=== PATIENT | female | born 1995 | race Caucasian/White ===

== ENCOUNTER → 2017-12-08 | Outpatient (CLI) | payer BC | END | disposition home or self-care (01) | LOC: C.LABSPEC 13:31 | PROVIDERS: ATTEND Physician Assistant | DX: Z01.419 Encounter for gynecological examination (general) (routine) without abnormal findings (principal) ==

== ENCOUNTER → 2017-12-08 | Outpatient (CLI) | payer BC | END | disposition home or self-care (01) | LOC: C.PAPS 13:34 | PROVIDERS: ATTEND Physician Assistant | DX: Z01.419 Encounter for gynecological examination (general) (routine) without abnormal findings (principal) ==

== ENCOUNTER → 2017-12-15 | Outpatient (CLI) | payer BC ==
--- NOTE | 2017-12-15 14:35 | MAMMOGRAPHY REPORT ---
ULTRASOUND OF RIGHT BREAST: 12/15/2017 CLINICAL HISTORY: The patient reports a palpable right breast lump which she has probably had for a y ear, however, it feels more discrete and possibly larger over the last 2 months. She denies any asso ciated pain or other complaints. COMPARISON: No prior exams were available for comparison. TECHNIQUE: Real-time high-resolution targeted ultrasound of the right breast was performed. FINDINGS: Real-time, high resolution targeted ultrasound was performed of the area of the palpable l ump pointed out by the patient, in the right breast at approximately 10:00, 7 cm from the nipple. At the site of the palpable lump there is an oval parallel circumscribed hypoechoic solid mass which me asures 12 x 6 x 10 mm. The mass likely represents a fibroadenoma. Given that it has increased in si ze clinically, ultrasound guided core needle biopsy is recommended for further evaluation. IMPRESSION: ACR BI-RADS CATEGORY 4: SUSPICIOUS - FOLLOW-UP RECOMMENDED Hypoechoic 12 mm mass in the right 10:00 breast at the site of the palpable lump pointed out by the p atient. The mass is indeterminate and ultrasound-guided core needle biopsy is recommended for furthe r evaluation. 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 A phone call was made to the physician's office to confirm faxed results were received. The patient was verbally notified of the results. She tentatively scheduled the biopsy before leaving the depart ment. Hoda Sharma M.D. ah/:12/15/2017 09:13:58 Operations Specialists: Heather MURPHY)(Azeem), [facility] letter sent: Abnormal 4/5 BI-RADS Code: ACR BI-RADS Category 4: Suspicious
== END | disposition home or self-care (01) ==
LOC: C.MAMM 08:42
PROVIDERS: ATTEND Physician Assistant
DX: N63.10 Unspecified lump in the right breast, unspecified quadrant (principal)

== ENCOUNTER → 2017-12-21 | Outpatient (CLI) | payer BC ==
--- NOTE | 2017-12-21 10:26 | Discharge Instructions ---
Discharge Instructions Procedure Procedure Date: Dec 21, 2017. Reason for visit: Right Mass. Discharge Discharge Date: Dec 21, 2017. Discharge Diagnosis: post right breast ultrasound guided core biopsy Instructions Activity Recommendations: Additional Limitations (see below) Return to School/Work: no limitations Recommended Home Diet: No Limitations Provider Instructions: ACTIVITY RECOMMENDATIONS: * No lifting, pushing, pulling or exercising the affected side for three days. RETURN TO SCHOOL/WORK: * You may return to work/school after the procedure, but do not perform any strenuous activities for 24 to 48 hours. MEDICATIONS: * Tylenol (two 325 mg) every four to six hours if needed for mild pain (if not allergic to Tylenol). DIET: * Resume previous diet. SPECIAL CARE INSTRUCTIONS: * Keep biopsy site dry for 24 hours. May shower after 24 hours, but do not soak (bathe) incision. * May remove Tegaderm (plastic patch) tomorrow AFTER showering. * Leave the steri-strips on for one week. Allow the steri-strips to fall off by themselves. If not off after one week, you may remove them. You may place a Bandaid crosswise over the strips, if desired. * Apply ice 10 minutes on and 10 minutes off as needed. * Wear a bra at bedtime to sleep more comfortably for 2-3 days. * Your referring physician should have the results after approximately 5 to 7 business days. * Call for unusual bleeding, fever, drainage, etc or if you have any questions call [phone] during normal business hours or after hours call Dr Ugalde, . FOLLOW UP VISIT: Follow-up with Referring Physician as scheduled. Sharon Jane Recommendations: Call your doctor if: * Temperature above 101 degrees * Pain not relieved by pain medicine ordered * There is increased drainage or redness from any incision * You have any unanswered questions or concerns. Your Doctors Instructions noted above were prepared by provider Wanda Ugalde. Patient Signature Section: Patient Instructions Signature Page Wanda Oliveira Patient (or Guardian) Signature/Date: I have read and understand the instructions given to me by my caregivers. Caregiver/RN/Doctor Signature/Date: The above-named patient and/or guardian has received patient instructions on this date. + Original Patient Signature Page (only) stays with chart. Please make copy for patient.
--- NOTE | 2017-12-21 14:02 | MAMMOGRAPHY REPORT ---
ULTRASOUND GUIDED BIOPSY RIGHT BREAST: 12/21/2017 CLINICAL HISTORY: 22-year-old woman presents for biopsy of a solid oval circumscribed parallel 12 mm mass in the 10:00 right breast. COMPARISON: Comparison is made to exam dated: 12/15/2017 ultrasound - [facility]. PATIENT CONSENT: The procedure, risks and benefits were discussed with the patient and informed conse nt was obtained both verbally and in writing. Specific risks to this procedure include: bleeding, in fection, puncture of adjacent structure, nontarget biopsy, sampling error, pain, metal allergy and me dication reaction. PROCEDURE DESCRIPTION: A time out was performed and the right breast was agreed as the site of biopsy . The skin was prepped and draped in the usual sterile fashion. The solid 12 mm mass in the 10:00 rig ht breast was chosen as the target for biopsy. Subcutaneous and intraparenchymal 1% buffered lidocain e, with and without epinephrine, was administered as local anesthesia. A skin incision was made. Thr ough the incision, 4 samples were taken with a 14 gauge Achieve biopsy device. A ribbon shaped metall ic marker was placed at the biopsy site. Hemostasis was achieved after manual compression. The patien t tolerated the procedure well and there was no immediate complication. The samples were sent to the pathology department in an appropriately labeled container. Postprocedure mammography was deferred given the patient's age. IMPRESSION: ULTRASOUND GUIDED BIOPSY Status post ultrasound guided core biopsy of a solid 12 mm oval mass in the 10:00 right breast, with ribbon-shaped biopsy marker clip placed at the site. The patient will receive notification of the biopsy results from her referring physician. Wanda Ugalde M.D. ay/:12/21/2017 10:33:05 Attending Technologist: Dr. Wanda Ugalde, [facility] Rn: Giancarlo NEAL(Vivek)(M), [facility]
== END | disposition home or self-care (01) ==
LOC: C.MAMM 09:25
PROVIDERS: ATTEND Physician Assistant
DX: D24.1 Benign neoplasm of right breast (principal)